=== PATIENT | female | born 1975 ===

== ENCOUNTER 2016-11-22 20:03 | Inpatient (IN) | payer MEDICAID, SELFPAY ==
[2016-11-22 21:02] VITALS: BMI 32.3
[2016-11-22] MEDS ORDERED: Lactated Ringer's 1,000 ML IV SCH ×2 (21:15→22:15)
[2016-11-22 21:52] LABS: HEMATOCRIT 36.2 % (34.0-47.0); MEAN CELL VOLUME 93.2 fl (81.0-99.0); MEAN CORPUSCULAR HEMOGLOBIN 30.7 pg (27.0-31.0); MEAN CORPUSCULAR HGB CONC 32.9 g/dL (33.0-37.0); RED CELL DISTRIBUTION WIDTH 14.7 % (11.5-14.5); WHITE BLOOD COUNT 9.7 K/uL (4.8-10.8)
[2016-11-22] MEDS ORDERED: ceFAZolin 1 GM in Sodium Chloride 0.9% 100 ML IVPB ONE (21:52)
[2016-11-22 22:09] LABS: RBC URINE 3 /hpf (0-3); URINE BACTERIA RARE (<OCC); URINE BILIRUBIN NEGATIVE (NEGATIVE); URINE BLOOD NEGATIVE (NEGATIVE); URINE COLOR YELLOW (YELLOW); URINE GLUCOSE (UA) NEG (Normal); URINE KETONE NEGATIVE (NEGATIVE); URINE LEUKOCYTE ESTERASE SMALL Leu/uL (Negative); URINE PROTEIN NEGATIVE (NEGATIVE); URINE UROBILINOGEN 0.2-1.0 mg/dL (0.2-1.0); WBC URINE 2 /hpf (0-5)
[2016-11-22] MEDS ORDERED: Morphine 1 mg/ml preservative-free Inj(Duramorph) ONE (22:11)
[2016-11-22] MEDS ORDERED: ePHEDrine 50 mg/ml Inj ONE (22:12)
[2016-11-22] MEDS ORDERED: Dexamethasone 4 mg/1 ml ONE (22:12)
[2016-11-22] MEDS ORDERED: Phenylephrine 10 mg/ml Inj ONE (22:12)
--- NOTE | 2016-11-22 22:30 | OBHP ---
Datetime: 11/22/2016 21:56 IP Adm Impression: Term, intrauterine IP Adm Impression Other: Variable Dcels IP Admit Plan: Admit to unit; Initiate Section protocol Pelvic Type - PN: Adequate Extremities - PN: Normal Abdomen - PN: Normal Back - PN: Normal Breast - PN: Normal Lungs - PN: Normal Heart - PN: Normal Thyroid - PN: Normal Neurologic - PN: Normal HEENT - PN: Normal General - PN: Normal FHR - Baseline A Provider: 130 Gestation - Est Wks by US: 38.4 IP Hx Assessment: The History has been Reviewed and is Current EGA AdmitDate IP: 38.4 Vital Signs Provider: Reviewed; Within Normal Limits IP Chief Complaint: Maternal discomfort NICHD Accel Fetus A IP Provider: 15X15 FHR Category Provider Fetus A: Category II NICHD Decel Fetus A IP Provider: Variable Genitourinary Exam: Normal DTRs - PN: Normal Datetime: 11/22/2016 21:04 Admit Comment, IP Provider: 41 y/o AMA, , 1SAB, IUP at 38.4 by 1st trimester US, presents to the hosp for spotting vaginal bleeding early this morning and pelvic pain q15 min. Denies LOF, last sexu al intercourse 3 days ago, patient had PNC visit this morning and reports symptons started after that . She noticed blood head control clerk and 1 time in the afternoon after voiding that she reports as small and red. Denies trauma, nausea, LOF. Allergies: NKA Meds: PNV Ob Hx: 1 C-Sect due to failure to progress 1 SAB Current : AC 4 weeks ahead on last US. UTI treated: Repeat UCx on cont aminated. 1st trimester screen high risk for T21, Informaseq showed low risk. Patient has scheduled C -Sect for 11/30/16. PMHx: Denies SxHx: C-Sect SHx: denies x3 PE: See above A: 41 y/o AMA, IUP at 38.4w presents for evaluation of labor P: -Observation -LR 1L IV bolus -UA - monitoring Case discussed with Dr Bibiana Jensen PGY1 OBH ADDENDUM: PT SEEN and examined by me. Agree with above with following additions. Pt denies coitus x3days. Reports good fm. sh: denies etoh, drugs or tobacco p: as above. Membranes, Provider: Intact Contraction Comments Provider: 12min Comments, ACOG Physical Exam: VE done by Dr Mccarty: Closed, thick, high NICHD Variability Prov Fetus A: Moderate 6-25bpm Dilatation, Provider: closed
[2016-11-22] MEDS ORDERED: Morphine 1 mg/ml preservative-free Inj(Duramorph) IT ONE (22:41)
[2016-11-22] MEDS ORDERED: DiphenhydrAMINE 50 mg/ml Inj IVP PRN (22:41)
[2016-11-22] MEDS ORDERED: Oxytocin 10 Units/ml Inj ONE (23:51)
[2016-11-23] MEDS ORDERED: Oxycodone/Acetaminophen 5/325 mg Tab PO PRN (01:16)
--- NOTE | 2016-11-23 02:39 | OBDS ---
DELIVERY PERSONNEL Delivery Doctor: Amy Mcfadden MD Damage Prevention Coordinator: Coby Rapp RN Anesthesiologist: Marlon Peng MD Resident: MD Mikey. MATERNAL INFORMATION Delivery Anesthesia: Spinal Medications in Delivery: 20 units pitocin in 1000 ml lr Estimated Blood Loss (ml): 800 Placenta Cultured: Yes Maternal Complications: None Provider Comments: op note preop dx: 38.5wks; latent phase labor; intermittent variable decles; prior cd postop dx: same procedure: repeat lftcd surg: kristofer castaneda 1st asst: lauren 2nd asst: elizabeth pany1 anesth: spinal, dr. peng findings: adhesions of uterus to ant abd wall; viable male; 3540g; 9_9 ebl 900cc no complic neon to nbn; pt to rr LABOR SUMMARY EDC: 12/02/2016 00:00 No. Babies in Womb: 1 Attempted: No Labor Anesthesia: Intrathecal LABOR INFORMATION Reason for Induction: Not Applicable Oxytocin: N/A Group B Beta Strep: Negative Antibiotics # of Doses: 1 Antibiotics Time of Last Dose: 2256 Steroids Given: None Reason Steroids Not Administered: Not Applicable MEMBRANES Membranes Rupture Method: Artificial Rupture of Membranes: 11/23/2016 00:03 Length of Rupture (hrs): 0.00 Amniotic Fluid Color: Clear Amniotic Fluid Amount: Moderate Amniotic Fluid Odor: Normal STAGES OF LABOR Stage 3 hrs: 0 Stage 3 min: 1 VAGINAL DELIVERY Episiotomy: None Laceration Extension: N/A Laceration Type: None Laceration Repair: Not Applicable Sponge Count Correct: N/A CSECTION DELIVERY Primary Indication: Repeat Elective Secondary Indication: Other Other Secondary Indication: intermittent variables CSection Urgency: Non Elective CSection Incidence: Repeat Labor: No Labor Elective: Elective CSection Incision: Lower Uterine Transverse BABY A INFORMATION Infant Delivery Date/Time: 11/23/2016 00:03 Method of Delivery: Born in Route : No : N/A Forceps: N/A Vacuum Extraction: N/A Shoulder Dystocia : No SHOULDER DYSTOCIA BABY A Delivery Date/Time: 11/23/2016 00:03 PRESENTATION/POSITION BABY A Presentation: Cephalic Cephalic Presentation: Vertex Vertex Position: Left Occipital Anterior Breech Presentation: N/A PLACENTA INFORMATION BABY A Placenta Delivery Time : 11/23/2016 00:04 Placenta Method of Delivery: Manual Removal Placenta Status: Delivered SCORES BABY A Heart Rate 1 min: >100 bpm Resp Effort 1 min: Good Cry Reflex Irritability 1 min: Cough or Sneeze or Pulls Away Muscle Tone 1 min: Active Motion Color 1 min: Body [place], Extremities Blue SCORE 1 MIN: 9 Heart Rate 5 min: >100 bpm Resp Effort 5 min: Good Cry Reflex Irritability 5 min: Cough or Sneeze or Pulls Away Muscle Tone 5 min: Active Motion Color 5 min: Body [place], Extremities Blue SCORE 5 MIN: 9 INFORMATION BABY A Gestational Age at Delivery: 38.5 Gestational Status: Term Infant Outcome : Liveborn Condition : Stable Sex: Male IDENTIFICATION/MEDS BABY A ID Band Number: [id number] WEIGHT/LENGTH BABY A Birthweight (gms): 3540 Weight (lb): 7 Weight (oz): 13 CORD INFORMATION BABY A No. Cord Vessels: 3 Nuchal Cord : N/A Cord Blood Taken: Yes Suction: Mouth; Nose ASSESSMENT BABY A Complications: None Physical Findings at Delivery: Within Normal Limits Infant Respirations: Appears Normal Assistant Store Leader/ALS Called : No Infant Care By: Dr Sandhu Transferred To: [facility]
[2016-11-23] MEDS ORDERED: Lactated Ringer's 1,000 ML IV SCH (04:45)
[2016-11-23 07:16] LABS: BASO % 0.1 % (0.0-2.0); HEMATOCRIT 31.4 % (34.0-47.0); LYMPH # 1.6 K/uL (1.0-4.3); LYMPH % 9.5 % (20.0-40.0); MEAN CELL VOLUME 93.5 fl (81.0-99.0); MEAN CORPUSCULAR HGB CONC 32.1 g/dL (33.0-37.0); MEAN PLATELET VOLUME 10.5 fl (7.2-11.7); MONO # 0.5 K/uL (0.0-0.8); NEUT # 14.8 K/uL (1.8-7.0); NEUT % 87.4 % (50.0-75.0); PLATELET COUNT 193 K/uL (130-400); RED CELL DISTRIBUTION WIDTH 14.7 % (11.5-14.5)
[2016-11-23 07:21] LABS: WHITE BLOOD COUNT 16.9 K/uL (4.8-10.8)
[2016-11-23 07:35] LABS: ALB/GLOB RATIO 0.8 (1.0-2.1); ALKALINE PHOSPHATASE 165 U/L (38-126); ALT/SGPT 25 U/L (9-52); AST/SGOT 27 U/L (14-36); BILIRUBIN,TOTAL 0.6 mg/dl (0.2-1.3); BLOOD UREA NITROGEN 12 mg/dl (7-17); CALCIUM 8.5 mg/dL (8.4-10.2); CARBON DIOXIDE 20 mmol/L (22-30); CHLORIDE 109 mmol/L (98-107); GFR AFRICAN-AMERICAN > 60; GLUCOSE,RANDOM 99 mg/dL (65-105); SODIUM 139 mmol/l (132-148); TOTAL PROTEIN 5.7 G/DL (6.3-8.2)
[2016-11-23 10:48] LABS: NEUTROPHIL 86 % (42-75); TOTAL CELLS COUNTED 100
[2016-11-23] MEDS: Oxycodone/Acetaminophen 5/325 mg Tab PO PRN (19:39)
--- NOTE | 2016-11-24 06:51 | OBPPN ---
Datetime: 11/24/2016 06:15 PP Pain Prov: Within normal limits PP Nausea Prov: Denies PP Flatus Prov: No PP BM Prov: No PP Breasts Prov: Normal PP Heart Prov: Normal PP Lungs Prov: Normal PP Abdomen/Uterus Prov: Normal PP Lochia Prov: Normal PP Vulva/Perineum Prov: Normal PP CVA Tenderness Prov: Normal PP Extremities Prov: Normal PP C/S Incision Prov: Normal PP Progress Prov: Normal PP Comments Phys Exam Prov: Not in distress. lungs CTA b/l. RRR, S1S2, abdomen soft, uterus at umb l evel firm. Incision clean, dry mitchell in place. +BS. No calf tenderness. Alert and Oriented PP Impression Prov: Normal progression PP Plan Prov: Continue present management IP PP Procedures: None Vital Signs Provider PP: Reviewed; Within Normal Limits Datetime: 11/23/2016 07:50 PP Progress Note Prov: Patient was seen and examined at bedside after sign out. Patient denies any c omplains at the time of evaluation. As per nurse report during L_D nurse endorsement, danna weiss's urine output was 150 ml from 1:30 am to 5:30 am on 11/23/16. Patient received 1 L of LR at 4:30 am as per MD order. And from 5:30 am to 7:10 am, when I assessed patient just found 15 ml in urine ba g, after repositioning of the leg the urine out put was 80 ml total (urine catheter was kinked). Danna weiss denies SOB, chest pain, nausea, vomiting or intractable pain. O:Vital sign WNL, no tachycardia noted. Abdomen: soft, mild distended, mild tender to palpation at uterus level, uterus firm above umbilic us. Plan: We will continue monitoring of vital signs and I_O -Continue current management. -F/U pCBC, CMP results -Start regular diet with breakfast Case discussed with Dr. Chu Montanez PGY1 OB Hospitalist information manager Pt seen and examined...monitor UO this morning RIZWANA
--- NOTE | 2016-11-24 12:21 | OBPPN ---
Datetime: 11/24/2016 06:15 PP Progress Note Prov: POD1 Patient seen at bedside in not acute distress. Denies vomiting, nausea, CP, SOB, calf pain. Lochia like menses, pain controlled with pain meds. Tolerating PO. Voiding without difficulty. No BM or fla tus yet. Ambulating without difficulty. PE: See above A: 41 y/o F, S/p C-Sect on POD1 doing better P: -Cont pain meds as needed -Senokot S 2 tab HS -Encourage ambulation -Undecided about circumcision for baby -Cont regular diet. Encouraged fluids and prune juice. Mando Jensen PGY1 OBH ADDENDUm: PT seen _ examind by me. Agree with above with following additions: p: -begin mylicon reglan x1 than prn recommended chewing gum to pt dulcolax supp prn circumcision d/w pt including procedure, benefits, risks, and that is an elective procedure not medical recommendation. consent obtained. wound care and hygiene d/w pt.
[2016-11-24] MEDS: Oxycodone/Acetaminophen 5/325 mg Tab PO PRN (14:32)
[2016-11-24] MEDS: Simethicone 80 mg Chewtab PO PRN (14:32)
[2016-11-24 14:51] LABS: BASO # 0.1 K/uL (0.0-0.2); BASO % 0.7 % (0.0-2.0); EOS # 0.2 K/uL (0.0-0.7); HEMATOCRIT 27.1 % (34.0-47.0); LYMPH # 1.7 K/uL (1.0-4.3); LYMPH % 18.2 % (20.0-40.0); MEAN CELL VOLUME 93.9 fl (81.0-99.0); MEAN CORPUSCULAR HEMOGLOBIN 31.1 pg (27.0-31.0); MEAN CORPUSCULAR HGB CONC 33.1 g/dL (33.0-37.0); MEAN PLATELET VOLUME 9.7 fl (7.2-11.7); MONO # 0.7 K/uL (0.0-0.8); MONO % 7.1 % (0.0-10.0); NEUT # 6.9 K/uL (1.8-7.0); RED CELL DISTRIBUTION WIDTH 15.2 % (11.5-14.5); WHITE BLOOD COUNT 9.6 K/uL (4.8-10.8)
--- NOTE | 2016-11-24 16:58 | OP ---
PROCEDURE DATE: 11/22/2016 PREOPERATIVE DIAGNOSES: 1. History of prior section x 1. 2. 38.5 weeks. 3. Latent phase labor. 4. Intermittent variable decelerations. POSTOPERATIVE DIAGNOSES: 1. History of prior section x 1. 2. 38.5 weeks. 3. Latent phase labor. 4. Intermittent variable decelerations. PROCEDURE: Repeat low transverse section. SURGEON: Brock Mccarty MD CIVIL DESIGN SPECIALIST: Dr. Michelle Mahoney SECOND CIVIL DESIGN SPECIALIST: Mando Jensen MD -- PGY-1 ANESTHESIOLOGIST: Dr. Mcguire ANESTHESIA: Spinal anesthesia. FINDINGS: Showed adhesions of the uterus to the anterior abdominal wall. These adhesions were from along the anterior wall of the uterus beginning along the upper central portion of the uterus and adh esions of the bladder to the lower uterine segment. Viable male with Apgars of 9 and 9 and a weight of 3540 grams. Clear amniotic fluid. ESTIMATED BLOOD LOSS: 900 mL COMPLICATIONS: No complications. DESTINATION: to nursery in satisfactory condition, patient to recovery room in satis factory condition. PATHOLOGY: No specimens. INDICATIONS: The patient is a 41-year-old female, 3, para 1, who presented at 38.4 weeks wit h complaints of vaginal spotting since the same day and the morning prior to presentation and complai nt of contractions every 15 minutes. Her last episode of intercourse was 3 days ago. Physical exam showed the cervix was found to be closed with 0 effacement and -3 presentation. The patient was plac ed on monitor and recurrent intermittent variable decelerations were observed and with continue d observation, patient was noted to develop contractions with more frequent intensity and complaining of pain of 8/10. Given recurrent variabilities and increased intensity of the pain, it was decided to proceed with a repeat section. Risks, benefits, indications versus discussed with dhruv lozano and she desired planned procedure. DESCRIPTION OF PROCEDURE: The patient was taken to the operating room where she underwent her spinal anesthesia without complications. She was subsequently placed in supine position where the Tran ca theter was placed. This was followed by prepping and draping her in the routine fashion. She was th en tilted to her left. A Pfannenstiel skin incision was made with the scalpel at the site of the old scar and this was carried down to the underlying rectus fascia, which was incised in the midline and extended bilaterally with a Bovie. The inferior rectus fascial edge was grasped and the underlying rectus muscle was dissected off. This was followed by grasping of the superior rectus fascial edge w ith the Romero's and dissecting off the underlying rectus muscle. Dense adhesions were noted of the rectus muscle to the overlying fascia. This required sharp dissection. Following dissection along t he midline, the tissue was noted to be densely adherent laterally and minimal visualization. The rec tus fascia was grasped on either side along the midline, elevated with Allis clamps and incised in th e midline to expose the underlying peritoneum. The peritoneum was elevated and incised. Upon entry into the abdominal cavity, dense adhesions were noted along the midline of the overlying peritoneum t o the uterus and because of these dense adhesions, it was decided to proceed with bilateral incision of the rectus muscle to allow for greater exposure and entry into the abdominal cavity. The muscles were incised bilaterally with the Bovie and cautery and excellent hemostasis was noted during this po rtion of the procedure. Upon entry into the abdomen, dense adhesions were noted along the anterior u terine wall and this required clamping of this tissue with the Kellys clamping, cutting and suture li gating the tissue in a sequential manner until the lower uterine segment of the uterus was visualized . The bladder was noted to be densely adherent to the lower uterine segment and the bladder flap was unable to be created. A uterine incision was made superior to the bladder into the lower portion of the anterior uterine wall which was above the lower uterine segment. The uterine muscle here was no behzad to be thickened. Upon lower uterine transverse incision into the uterus, either edge of the inci mike was grasped with Kochers and the uterine muscle was grasped with Allis clamps, elevated, and the uterine incision was extended further laterally and deeper along the midline until the membrane was visualized. The membrane was ruptured and the uterine incision was extended digitally followed by us e of the bandage scissors to perform an accentuated curvilinear incision to enable enough space for d elivery of the fetus. The was noted to be transverse position LOT and the 's head was delivered atraumatically followed by delivery of the remaining portion of the baby. The mouth and n gracie were suctioned. The cord was clamped and cut. The baby was handed to the waiting correctional nurse. Cord blood was collected. The placenta was delivered spontaneously and intact. The uterus was ext eriorized and cleared of all clot and debris. The uterine incision was reapproximated with 0 Vicryl in a running lock fashion followed by an imbricated stitch of 0 Monocryl in a running fashion. [place] lent hemostasis was obtained. The abdomen was irrigated and cleared of all clots and debris. The ut erus was returned to the abdomen and moistened laps were placed into both gutters. The pelvic cavity was irrigated and cleared of all clots and debris. The uterine incision was reinspected and excelle nt hemostasis was confirmed. Each lap was removed. This was followed by reapproximation of the fasc ia beginning in the right lateral corner going to midline and another stitch beginning in left latera l corner going to midline. Of note, the right portion of the fascial closure was per Dr. Mahoney and a lso of note, the closure of the right portion of the uterus with the 0 Vicryl was also per Dr. Mahoney. The wound was irrigated and excellent hemostasis was confirmed. The subcutaneous tissue was closed with 2-0 plain in a simple interrupted fashion and the skin was closed with mitchell. All sponge, la p, and needle counts were correct x 2 and patient returned to recovery room in satisfactory condition . Of note, Dr. Mahoney the first surgical first assistant assisted in surgical entry, surgical exposure, surgic al hemostasis, delivery of the fetus and surgical closure. Her assistance was essential to the proce dure. Brock Mccarty MD cc: [id number] TT: 11/24/2016 16:57:20 sn
[2016-11-24] MEDS: Docusate-Senna 50 mg-8.6 mg Tab PO SCH (21:40)
--- NOTE | 2016-11-25 07:25 | OBPPN ---
Datetime: 11/25/2016 06:25 PP Pain Prov: Within normal limits PP Nausea Prov: Denies PP Flatus Prov: Yes PP BM Prov: No PP Breasts Prov: Normal PP Heart Prov: Normal PP Lungs Prov: Normal PP Abdomen/Uterus Prov: Normal PP Lochia Prov: Normal PP Vulva/Perineum Prov: Normal PP CVA Tenderness Prov: Normal PP Extremities Prov: Normal PP C/S Incision Prov: Normal PP Progress Prov: Normal PP Comments Phys Exam Prov: Not in acute distress. lungs CTA b/l. RRR, S1S2, abdomen soft, uterus be low umb level firm. Incision clean, dry mitchell in place. +BS. No calf tenderness. Alert and Oriented PP Impression Prov: Normal progression PP Plan Prov: Continue present management PP Progress Note Prov: POD2 Patient seen at bedside in not acute distress. Denies vomiting, nausea, CP, SOB, calf pain. Lochia like menses, pain controlled with Motrin. Tolerating PO. Voiding without difficulty. No BM yet. +fla tus. Ambulating without difficulty. PE: See above A: 41 y/o F, S/p C-Sect on POD2 normal progression. P: -Cont pain meds as needed -Cont Senokot S and Simethicone -Cont regular diet. Encouraged fluids and prune juice. -Dulcolax sup PRN -As patient's time of delivery was 00:03 she can be discharge home today on POD2 pending attendan t(Dr Chand) evaluation and approval Mando Jensen PGY1 OB Hospitalist Addendum: Pt seen and examineed by me. Agree w/ above. POD 2 s/p repeat c/s, pey[place] le feeding, doing well. Continue current management. (ES) IP PP Procedures: None Vital Signs Provider PP: Reviewed; Within Normal Limits
[2016-11-25] MEDS: Simethicone 80 mg Chewtab PO PRN (08:56)
[2016-11-25] MEDS: Docusate-Senna 50 mg-8.6 mg Tab PO SCH (22:14)
--- NOTE | 2016-11-26 10:40 | OBDCSUM ---
Datetime: 11/25/2016 06:31 Discharge Time: 11/26/2016 12:00 Discharge Comment, Provider: Patient doing well on POD3. She was considered DC home on 11/25/16 but stayed 1 more day as per OB attendant. +BM. lochia like menses pain controlled with Motrin. Toleratin g PO , voiding and ambulating with no difficulty. A: s/p C-Sect POD3. Normal progression P: Discharge home Motrin and Percocet PRN for pain Senokot S HS F/U with PMD for wound check in 1 week and for baby in 3 days. Mando Jensen PGY1 OB Hospitalist on-call..I saw and examined this patient. She is ready to go home....agree with no te...discharge home...RIZWANA
--- NOTE | 2016-11-26 10:40 | OBPPN ---
Datetime: 11/26/2016 06:10 PP Pain Prov: Within normal limits PP Nausea Prov: Denies PP Flatus Prov: Yes PP BM Prov: Yes PP Breasts Prov: Normal PP Heart Prov: Normal PP Lungs Prov: Normal PP Abdomen/Uterus Prov: Normal PP Lochia Prov: Normal PP Vulva/Perineum Prov: Normal PP CVA Tenderness Prov: Normal PP Extremities Prov: Normal PP Comments Phys Exam Prov: Not in acute distress. lungs CTA b/l. RRR, S1S2, abdomen soft, uterus be low umb level firm. Incision clean, dry. +BS. No calf tenderness. Alert and Oriented PP Impression Prov: Normal progression PP Plan Prov: Discharge PP Progress Note Prov: POD3 Patient seen at bedside in not acute distress. Denies vomiting, nausea, CP, SOB, calf pain. Lochia like menses, pain controlled with Motrin. Tolerating PO. Voiding without difficulty. Patient had BM yesterday. +flatus. Ambulating without difficulty. PE: See above A: 41 y/o F, S/p C-Sect on POD3 normal progression. P: -Cont pain meds as needed -Cont Senokot S -Cont regular diet. -Anticipated dc today Mando Jensen PGY1 OB Hospitalist on-call..I saw and examined this patient. She is ready to go home....agree with no te...discharge home...GALENNDO IP PP Procedures: None Vital Signs Provider PP: Reviewed; Within Normal Limits
== END 2016-11-26 13:55 | disposition home or self-care (01) | DRG 766 ==
LOC: H.EROB2 20:03 → H.L&D 21:47 → H.OB/GYN 11-23 06:55
PROVIDERS: ADMIT Obstetrics & Gynecology; ATTEND Obstetrics & Gynecology
PROC: 4A1HXCZ Monitoring of Products of Conception, Cardiac Rate, External Approach (ICD-10-PCS; 2016-11-22)
PROC: 10D00Z1 Extraction of Products of Conception, Low, Open Approach (ICD-10-PCS; principal; 2016-11-23)
DX: O76 Abnormality in fetal heart rate and rhythm complicating labor and delivery (principal); N73.6 Female pelvic peritoneal adhesions (postinfective); Z37.0 Single live birth; N85.8 Other specified noninflammatory disorders of uterus; O34.211 Maternal care for low transverse scar from previous cesarean delivery; Z3A.38 38 weeks gestation of pregnancy; O09.523 Supervision of elderly multigravida, third trimester; O99.89 Other specified diseases and conditions complicating pregnancy, childbirth and the puerperium

== ENCOUNTER 2017-07-26 15:18 | Emergency (ER) | payer MEDICAID, OTHER ==
[2017-07-26 15:18] VITALS: BMI 32.3
[2017-07-26 16:08] VITALS: BP 134/85; PULSE 71; RESP 20; TEMP 99.4; O2SAT 100
--- NOTE | 2017-07-26 17:43 | ED PDOC ---
HPI: Skin/Bite Injury Time Seen by Provider: 07/26/17 16:20 Chief Complaint (Nursing): Breast Problem Chief Complaint (Provider): Breast Problem History Per: Patient History/Exam Limitations: no limitations Onset/Duration Of Symptoms: Days (x 1 week) Current Symptoms Are (Timing): Still Present Additional Complaint(s): 41 y/o female presents to the ED complaining of right-sided breast pain ongoing for the past 1 week, but worsened today. Pain is mostly localized at the nipple , which she thinks looks red. She denies any fever. Patient is currently breast feeding her 7-month-old, but notes she has been pumping from the right breast only and not from it. She denies taking any medications for pain relief. LMP was June 11. PMD: Non-[facility] provider Past Medical History Reviewed: Historical Data, Nursing Documentation, Vital Signs Vital Signs: Last Vital Signs Temp 99.4 F 07/26/17 16:06 Pulse 71 07/26/17 16:06 Resp 20 07/26/17 16:06 BP 134/85 07/26/17 16:06 Pulse Ox 100 07/26/17 18:23 - Medical History PMH: No Chronic Diseases - Family History Family History: States: Unknown Family Hx - Social History Current smoker - smoking cessation education provided: No Alcohol: None Drugs: Denies - Home Medications Home Medications: Ambulatory Orders Medication Instructions Recorded Vit No.126/Iron/Folic 1 tab PO DAILY 11/22/16 [Classic Tablet] Docusate Sodium/Sennosides A 2 tab PO HS #20 tab 11/24/16 [Senokot S 50 MG-8.6 MG] Ibuprofen [Motrin Tab] 600 mg PO Q6H PRN #30 tab 11/24/16 oxyCODONE/Acetaminophen [Percocet 1 tab PO Q6H PRN #30 tab 11/24/16 5/325 mg Tab] oxyCODONE/Acetaminophen [Percocet 2 tab PO Q4 PRN #0 tab 11/24/16 5/325 mg Tab] Docusate Sodium/Sennosides A 2 tab PO HS #20 tab 11/26/16 [Senokot S 50 MG-8.6 MG] Ibuprofen [Motrin Tab] 600 mg PO Q6H PRN #30 tab 03/24/17 oxyCODONE/Acetaminophen [Percocet 1 tab PO Q6H PRN #30 tab 11/26/16 5/325 mg Tab] Acetaminophen [Tylenol 325mg tab] 650 mg PO QID 7 Days #25 tab 07/26/17 Bacitracin OINT 1 applic TOP BID #1 tube 07/26/17 - Allergies Allergies/Adverse Reactions: Allergies Allergy/AdvReac Type Severity Reaction Status Date / Time No Known Allergies Allergy Verified 07/26/17 17:21 Review of Systems ROS Statement: Except As Marked, All Systems Reviewed And Found Negative Constitutional: Negative for: Fever Skin: Positive for: Other (redness and pain of right nipple) Physical Exam - Reviewed Nursing Documentation Reviewed: Yes Vital Signs Reviewed: Yes - Physical Exam Appears: Positive for: Well, Non-toxic, No Acute Distress Head Exam: Positive for: ATRAUMATIC, NORMAL INSPECTION, NORMOCEPHALIC Skin: Positive for: Normal Color (Scant erythema to right nipple with mild cracking. Remainder of the breast appears non-erythematous, nonindurated, no increased warmth noted. Kelly Fritz PA-C was armor reconnaissance vehicle crewman) Eye Exam: Positive for: Normal appearance Neck: Positive for: Normal, Supple Neurologic/Psych: Positive for: Alert, Oriented (x3) - ECG O2 Sat by Pulse Oximetry: 100 (RA) Pulse Ox Interpretation: Normal Medical Decision Making Medical Decision Making: Time: 17:31 Initial Plan: --Given Tylenol 650 mg PO Patient is medically stable, and requires no further treatment in the ED at this time. Patient will be discharged home with prescriptions for tylenol and bacitracin cream. Advised patient to pump and dump on right breast and to take prescribed medication for pain. Return if symptoms worsen, entire breast becomes red, warm, indurated, or she develops fever. There is agreement to discharge plan. Return if symptoms persist or worsen. Scribe Attestation: Documented by Sara Boland, acting as a scribe for Andreia Duncan PA-C Provider Scribe Attestation: All medical record entries made by the Scribe were at my direction and personally dictated by me. I have reviewed the chart and agree that the record accurately reflects my personal performance of the history, physical exam, medical decision making, and the department course for this patient. I have also personally directed, reviewed, and agree with the discharge instructions and disposition. Disposition - Clinical Impression Clinical Impression: Nipple pain - Patient ED Disposition Is Patient to be Admitted: No Counseled Patient/Family Regarding: Diagnosis, Need For Followup, Rx Given - Disposition Referrals: [facility] [Outside] Disposition: Routine/Home Disposition Time: 18:17 Condition: STABLE Additional Instructions: Take medication as prescribed. Pump and dump from right breast. Prescriptions: Acetaminophen [Tylenol 325mg tab] 650 mg PO QID 7 Days #25 tab Bacitracin OINT 1 applic TOP BID #1 tube Instructions: and Nipple Soreness (ED) Forms: [employer] (Chadian) Print Language: SUDANESE
== END 2017-07-26 18:56 | disposition home or self-care (01) ==
LOC: H.ER 15:18
DX: N64.59 Other signs and symptoms in breast (principal)

== ENCOUNTER 2018-11-30 11:04 | Emergency (ER) | payer OTHER ==
[2018-11-30 11:11] VITALS: BMI 28.6
[2018-11-30] MEDS ORDERED: Naproxen 500 MG TAB PO STA (12:25)
[2018-11-30] MEDS ORDERED: Naproxen 500 MG TAB PO ONE (12:30)
--- NOTE | 2018-11-30 13:54 | ED PDOC ---
Upper Extremity Pain/Injury Time Seen by Provider: 11/30/18 12:24 Chief Complaint (Nursing): Upper Extremity Problem/Injury Chief Complaint (Provider): Left shoulder pain History Per: Patient History/Exam Limitations: no limitations Onset/Duration Of Symptoms: Persistent, Worse Since (1 day) Current Symptoms Are (Timing): Still Present Quality: "Pain" Additional Complaint(s): 43yo female, otherwise well with no past medical history, comes to ER reporting worsening of her chronic left shoulder pain. Patient has had this pain worked up previously with her PMD including an MRI which showed no evidence of injuries. Patient states pain worsened over the past day and thus presents here for further evaluation. She denies any trauma, infection, changes in activity. No additional complaints. PMD: None Past Medical History Reviewed: Historical Data, Nursing Documentation, Vital Signs Vital Signs: Last Vital Signs Temp 98.3 F 11/30/18 11:09 Pulse 72 11/30/18 11:09 Resp 16 11/30/18 11:09 BP 122/72 11/30/18 11:09 Pulse Ox 99 11/30/18 11:09 - Medical History PMH: No Chronic Diseases - Surgical History Surgical History: No Surg Hx - Family History Family History: States: No Known Family Hx - Home Medications Home Medications: Ambulatory Orders Medication Instructions Recorded Vit No.126/Iron/Folic 1 tab PO DAILY 11/22/16 [Classic Tablet] Docusate Sodium/Sennosides A 2 tab PO HS #20 tab 11/24/16 [Senokot S 50 MG-8.6 MG] Ibuprofen [Motrin Tab] 600 mg PO Q6H PRN #30 tab 11/24/16 oxyCODONE/Acetaminophen [Percocet 1 tab PO Q6H PRN #30 tab 11/24/16 5/325 mg Tab] oxyCODONE/Acetaminophen [Percocet 2 tab PO Q4 PRN #0 tab 11/24/16 5/325 mg Tab] Docusate Sodium/Sennosides A 2 tab PO HS #20 tab 11/26/16 [Senokot S 50 MG-8.6 MG] Ibuprofen [Motrin Tab] 600 mg PO Q6H PRN #30 tab 11/26/16 oxyCODONE/Acetaminophen [Percocet 1 tab PO Q6H PRN #30 tab 11/26/16 5/325 mg Tab] Acetaminophen [Tylenol 325mg tab] 650 mg PO QID 7 Days #25 tab 07/26/17 Bacitracin OINT 1 applic TOP BID #1 tube 07/26/17 Naproxen 500 mg PO BID #30 tab 11/30/18 - Allergies Allergies/Adverse Reactions: Allergies Allergy/AdvReac Type Severity Reaction Status Date / Time No Known Allergies Allergy Verified 07/26/17 17:21 Review of Systems ROS Statement: Except As Marked, All Systems Reviewed And Found Negative Musculoskeletal: Positive for: Shoulder Pain (left) Neurological: Negative for: Weakness, Numbness Physical Exam - Reviewed Nursing Documentation Reviewed: Yes Vital Signs Reviewed: Yes - Physical Exam Appears: Positive for: Non-toxic, No Acute Distress Head Exam: Positive for: ATRAUMATIC, NORMAL INSPECTION, NORMOCEPHALIC Skin: Positive for: Normal Color Eye Exam: Positive for: Normal appearance Neck: Positive for: Supple Cardiovascular/Chest: Positive for: Regular Rate, Rhythm. Negative for: Tachycardia Respiratory: Positive for: Normal Breath Sounds. Negative for: Respiratory Distress Pulses-Radial (L): 2+ Extremity: Positive for: Normal ROM (FROM of left shoulder and arm on all direction), Tenderness (tenderness to palpation of anterior left shoulder into pectoral head). Negative for: Deformity, Swelling Neurological/Psych: Positive for: Awake, Alert, Symmetric/Intact Strength (5/5 strength upper extremities). Negative for: Motor/Sensory Deficits - ECG O2 Sat by Pulse Oximetry: 99 (RA) Pulse Ox Interpretation: Normal Medical Decision Making Medical Decision Making: Workup for worsening chronic pain Plan: -- XR left shoulder -- Naproxen 500mg PO 1348 XR reviewed, unremarkable On reassessment, patient reports improvement in pain after taking Naproxen Patient is stable for discharge home - informed to follow up with PMD, also given referral to follow up with ortho. ScribeAttestation: Documented byJosefina Batres, acting as a scribe for Sue Foster MD. Provider ScribeAttestation: All medical record entries made by the Scribe were at my direction and personally dictated by me. I have reviewed the chart and agree that the record accurately reflects my personal performance of the history, physical exam, medical decision making, and the department course for this patient. I have also personally directed, reviewed, and agree with the discharge instructions and disposition. Disposition - Disposition
[2018-11-30 14:16] VITALS: BP 122/68; PULSE 75; RESP 18; TEMP 98.4; O2SAT 100
--- NOTE | 2018-11-30 16:06 | RAD ---
Date of service: 11/30/2018 PROCEDURE: Radiographs of the Left Shoulder HISTORY: left shoulder pain COMPARISON: No prior. TECHNIQUE: 3 views obtained. FINDINGS: BONES: Normal. No fracture. JOINTS: Normal. Glenohumeral and acromioclavicular joints preserved. No osteoarthritis. SOFT TISSUES: Normal. OTHER FINDINGS: None. IMPRESSION: Normal radiographs of the left shoulder.
== END 2018-11-30 14:10 | disposition home or self-care (01) ==
LOC: H.ER 11:04
DX: M25.512 Pain in left shoulder (principal)